=== PATIENT | female | born 2005 | race Caucasian/White ===

== ENCOUNTER 2023-08-27 06:54 | Day surgery (SDC) | payer MEDICAID ==
[~2023-08-27] VITALS: Ht 167.6 cm; Wt 119.3 kg
[~2023-08-27 06:54] MED LIST: EMGA120I; ESTA0.25 PO; FLUO20CA22 PO
[2023-08-27] MEDS ORDERED: CLAR10CA3 PO (07:44)
[2023-08-27] MEDS: LR 1,000 ML IV SCH (07:45)
[2023-08-27] MEDS ORDERED: MIDAZOLAM INJ 2MG/2ML VIAL As Ordered ONE (08:26)
[2023-08-27] MEDS ORDERED: OXYMETAZOLINE 0.05% NASAL SPRAY (AFRIN) As Ordered ONE (08:26)
[2023-08-27] MEDS ORDERED: SUGAMMADEX SODIUM 500 MG/5 ML VIAL (BRIDION) As Ordered ONE (08:27)
[2023-08-27] MEDS ORDERED: ONDANSETRON 4MG 2ML VIAL As Ordered ONE (08:27)
[2023-08-27] MEDS ORDERED: fentaNYL 100 MCG/2 ML INJECTION As Ordered ONE (08:27)
[2023-08-27] MEDS ORDERED: ROCURONIUM BROMIDE 50MG/5ML VIAL As Ordered ONE (08:27)
[2023-08-27] MEDS ORDERED: LIDOCAINE 2% 100MG/5ML SDV (FOR ANES.) As Ordered ONE (08:28)
[2023-08-27] MEDS ORDERED: propofoL 200 MG/20 ML VIAL As Ordered ONE (08:30)
[2023-08-27] MEDS ORDERED: HYDROmorphone HCL 2MG/ML 1ML VIAL As Ordered ONE (08:54)
[2023-08-27] MEDS ORDERED: HYDROMORPHONE HCL 0.5 MG/ 0.5 ML SYRINGE IV PRN (09:35)
[2023-08-27] MEDS ORDERED: oxyCODONE 5MG TAB PO PRN (09:35)
[2023-08-27] MEDS ORDERED: LR 1,000 ML IV SCH (09:35)
[2023-08-27] MEDS: ONDANSETRON 4MG 2ML VIAL IV PRN (10:09)
[2023-08-27] MEDS: fentaNYL 100 MCG/2 ML INJECTION IV PRN (10:19)
[2023-08-27 10:30] VITALS: TEMP 98
[2023-08-27 11:23] VITALS: BP 112/65; O2SAT 98
== END 2023-08-27 11:39 | disposition home or self-care (01) ==
LOC: M SDC 06:54
PROVIDERS: ATTEND Otolaryngology
DX: J35.03 Chronic tonsillitis and adenoiditis (principal); F32.A Depression, unspecified; G43.909 Migraine, unspecified, not intractable, without status migrainosus; Z79.899 Other long term (current) drug therapy; Z88.8 Allergy status to other drugs, medicaments and biological substances
CPT/HCPCS: 42821; 88302; J0665; J1100; J1170; J2250; J2405; J3010